=== PATIENT | female | born 2000 | race Caucasian/White ===

== ENCOUNTER → 2020-06-14 | Outpatient (CLI) | payer BC ==
--- NOTE | 2020-06-14 15:16 | RAD ---
DATE: 06/14/2020 12:10 PM EXAM: MAMMO LAUREEN OSVALDOG LT, BREAST BILATERAL HISTORY: 20-year-old woman presents with bilateral expressible green nipple discharge. She stopped control in March 2020. She also reports having linear bruising in the left breast. COMPARISON: None TECHNIQUE: Whole breast ultrasound was performed bilaterally. Thereafter, CC and MLO views of the left breast with 2-D and 3-D technique were obtained. Breast Density: HETERO The breast parenchyma Is heterogeneously dense, which could reduce sensitivity of mammography. Breast parenchyma level C FINDINGS: Right breast: Sonographic survey of the right breast revealed no suspicious sonographic findings with dense fibroglandular tissue noted. No axillary adenopathy. Left breast: Sonographic evaluation of the left breast revealed tubular 1.2 cm hypoechoic mass in the subcutaneous fat underneath the skin surface at the left 1:00 position 4 cm from the nipple, suggestive of superficial thrombophlebitis (Mondor's disease). At the left 3:00 position 6 cm from the nipple, a round solid and wide 3.8 mm mass is identified with partially circumscribed, partially indistinct margins. 3-D mammography with a marker on this sonographic finding revealed no mammographic correlate (marked with a triangular marker in the lateral left breast). This is considered probably benign and recommended for short-term follow-up ultrasound in 3 months. At the left 9:00 position 4 cm from the nipple, an oval parallel orientation 9 mm mass with partially circumscribed, partially indistinct margins is present, favored to represent a benign solid mass such as a fibroadenoma. 3-D mammography shows a partly circumscribed, partly obscured oval mass, best illustrated on cc tomographic image 34 of 62 that correlates with the sonographic finding (marked with a round, mole marker in the medial left breast). It is probably benign and also recommended for short-term follow-up ultrasound in 3 months. At the left 3:30 o'clock position 5 cm from the nipple, circumscribed parallel orientation oval mass measuring 1.2 cm compatible with a fibroadenoma or lipoma is seen and is sonographically benign. IMPRESSION: Left breast masses, findings for which additional imaging is advised. BI-RADS CATEGORY: 3 PROBABLY BENIGN FINDING(S)-SHORT INTERVAL FOLLOW-UP SUGGESTED RECOMMENDED FOLLOW-UP: 3M 3 MONTH FOLLOW-UP Left breast targeted ultrasound of the sonographic masses at the 3:00 position 6 cm from the nipple and at the 9:00 position 4 cm from the nipple is recommended. Clinical management of patient's bilateral expressible green nipple discharge is also recommended. PQRS compliance statement: Patient information was entered into a reminder system with a target due date for the next mammogram. Mammography is a sensitive method for finding small breast cancers, but it does not detect them all and is not a substitute for careful clinical examination. A negative mammogram does not negate a clinically suspicious finding and should not result in delay in biopsying a clinically suspicious abnormality. "Our facility is accredited by the [employer] Mammography Program."
== END | disposition home or self-care (01) ==
LOC: US 10:29
PROVIDERS: ATTEND Nurse Practitioner Women's Health
DX: R92.2 Inconclusive mammogram (principal); N64.52 Nipple discharge
CPT/HCPCS: 76641; 77065; G0279; 77061